=== PATIENT | female | born 1955 | race Caucasian/White ===

== ENCOUNTER 2021-09-22 04:21 | Day surgery (SDC) | payer OTHER ==
[2021-09-19 17:03] VITALS: BMI 32.4
[2021-09-22] MEDS ORDERED: IOHEXOL 180 MG/1 ML ML IJ ONE (10:45)
[2021-09-22] MEDS ORDERED: BUPIVACAINE HCL/PF 0.75% 10 ML VIAL NR ONE ×2 (10:46→10:55)
[2021-09-22] MEDS ORDERED: LIDOCAINE 1% P/F 10 MG/ML VIAL INF ONE ×2 (10:46→10:48)
[2021-09-22 11:19] VITALS: BP 142/69; PULSE 76; TEMP 98.6
== END 2021-09-22 13:10 | disposition home or self-care (01) ==
LOC: JASU-SURG 04:21
PROVIDERS: ATTEND Pain Medicine Pain Medicine
PROC: BR16YZZ Fluoroscopy of Lumbar Facet Joint(s) using Other Contrast (ICD-10-PCS; 2021-09-22)
PROC: 3E0T3BZ Introduction of Anesthetic Agent into Peripheral Nerves and Plexi, Percutaneous Approach (ICD-10-PCS; principal; 2021-09-22 10:30)
DX: M47.816 Spondylosis without myelopathy or radiculopathy, lumbar region (principal)
CPT/HCPCS: 76000-TC-FY

== ENCOUNTER 2021-10-17 04:30 | Day surgery (SDC) | payer OTHER ==
[2021-10-12 16:42] VITALS: BMI 32.4
[~2021-10-17 04:30] MED LIST: BUPIVACAINE HCL/PF 0.75% 10 ML VIAL NR ONE
[2021-10-17] MEDS ORDERED: LIDOCAINE HCL 1% PRESERVATIVE FREE - 30ML VIAL IJ ONE (08:40)
[2021-10-17] MEDS ORDERED: IOHEXOL 180 MG/1 ML ML IJ ONE (08:44)
[2021-10-17] MEDS ORDERED: BUPIVACAINE HCL/PF 0.75% 10 ML VIAL NR ONE (08:46)
[2021-10-17 09:53] VITALS: BP 130/60; PULSE 70; TEMP 98.7
== END 2021-10-17 09:30 | disposition home or self-care (01) ==
LOC: JASU-SURG 04:30
PROVIDERS: ATTEND Pain Medicine Pain Medicine
PROC: BR16YZZ Fluoroscopy of Lumbar Facet Joint(s) using Other Contrast (ICD-10-PCS; 2021-10-17)
PROC: 3E0T3BZ Introduction of Anesthetic Agent into Peripheral Nerves and Plexi, Percutaneous Approach (ICD-10-PCS; principal; 2021-10-17 08:00)
DX: M47.816 Spondylosis without myelopathy or radiculopathy, lumbar region (principal)
CPT/HCPCS: 76000-TC-FY

== ENCOUNTER 2022-10-17 14:36 | Emergency (ER) | payer OTHER ==
[2022-10-17 15:10] VITALS: BP 108/58; PULSE 75; RESP 20; TEMP 98.3; BMI 33.3
== END 2022-10-17 17:37 | disposition home or self-care (01) ==
LOC: JERFT 14:36
DX: J06.9 Acute upper respiratory infection, unspecified (principal)
CPT/HCPCS: 0241U-QW; 71046-TC-FY; 87651; 99284-25